=== PATIENT | male | born 1995 | race Caucasian/White ===

== ENCOUNTER 2016-09-08 22:13 | Emergency (ER) | payer BC ==
[2016-09-08 22:19] VITALS: TEMP 97.5
[2016-09-08] MEDS ORDERED: HYDROmorphONE/DILAUDID 1 MG/ML SYR ONE (22:45)
[2016-09-08] MEDS ORDERED: ONDANSETRON 4 MG/2 ML VIAL ONE (22:45)
[2016-09-08] MEDS ORDERED: KETOROLAC 15 MG/1 ML SDV IVP ONE (22:50)
[2016-09-08] MEDS ORDERED: ONDANSETRON 4 MG/2 ML VIAL IVP ONE (22:51)
[2016-09-08] MEDS ORDERED: HYDROmorphONE/DILAUDID 1 MG/ML SYR IVP ONE (22:51)
--- NOTE | 2016-09-08 22:51 | EDPHY ---
H & P Stated Complaint: LLQ/flank pain x2 days, denies N/V/D and dysuria Time Seen by Provider: 09/08/16 22:23 HPI/ROS: CHIEF COMPLAINT: left side pain HISTORY OF PRESENT ILLNESS: 21-year-old male presents to the emergency department complaining of left side pain for the past 24 hours that became worse this morning upon awakening and has worsened throughout the day. The patient reports his pain is constant, sharp. He denies nausea or vomiting, no diarrhea. He he reports having a small firm bowel movement earlier today. He denies difficulty urinating. Patient returned home from spring in [place] 2 days ago. He reports drinking the tap water. Nobody else in his group is sick. Patient denies chest pain or shortness of breath, no calf pain. Patient reports a decreased appetite for the past 36 hours. REVIEW OF SYSTEMS: A comprehensive 10 point review of systems is otherwise negative aside from elements mentioned in the history of present illness. Source: Patient Exam Limitations: No limitations - Personal History Current Tetanus/Diphtheria Vaccine: Unsure Current Tetanus Diphtheria and Acellular Pertussis (TDAP): Unsure - Medical/Surgical History Hx Asthma: No Hx Chronic Respiratory Disease: No Hx Diabetes: No Hx Cardiac Disease: No Hx Renal Disease: No Hx Cirrhosis: No Hx Alcoholism: No Hx HIV/AIDS: No Hx Splenectomy or Spleen Trauma: No Other PMH: no PMH. lumbar pain, L rotator cuff repair - Social History Smoking Status: Former smoker - Physical Exam Exam: Physical Exam Gen: Alert and Oriented, tearful, grimacing HEENT: PERRL, moist mucous membranes NECK: no meningismus CV: regular rate and regular rhythm PULM: CTAB, no wheezes ABDOMEN: soft, non tender to palpation, BS present BACK: Left CVA tenderness NEURO: Neurologically grossly intact EXTREMITIES: normal appearing SKIN: no rash or break in skin on exposed skin PSYCH: answers questions appropriately. Constitutional: Initial Vital Signs Temperature (C) 36.4 C 09/08/16 22:17 Heart Rate 98 09/08/16 22:17 Respiratory Rate 18 09/08/16 22:17 Blood Pressure 147/74 H 09/08/16 22:17 O2 Sat (%) 100 09/08/16 22:17 O2 Delivery Mode Room Air Allergies/Adverse Reactions: No Known Allergies Allergy (Unverified 04/24/15 15:35) Home Medications: Medication Instructions Recorded NK [No Known Home Meds] 09/08/16 Medical Decision Making - Diagnostics Imaging: CT abdomen pelvis without contrast- Impression: 1. Negative for nephrolithiasis or obstructive uropathy. 2. Mildly dilated small bowel loops could reflect enteritis. 3. See above report for additional findings. Results called and discussed with Mary Escobar NP on 09/08/2016 23:[address] examination is specifically designed to evaluate patients who are clinically suspected of having acute obstructive uropathy. This examination does not use radiographic contrast, and as such , provides only a limited evaluation of the abdomen, pelvis and retroperitoneum. Dictated By: Ruperto Ramírez MD ED Course/Re-evaluation: IV established, CBC and chemistry panel obtained, CT abdomen pelvis without IV contrast ordered as concern patient has a kidney stone with no history of kidney stones. Patient is aware we need a urine sample. Patient is given 1 mg of Dilaudid and 4 mg of Zofran for pain, chemistry panel shows a creatinine 1.0 so 15 mg of IV Toradol have been given. 2320-CT abdomen pelvis shows no evidence of kidney stone, there is mildly dilated small bowel loops which could reflect an enteritis. Urinalysis results are pending. 0000-patient reports his pain is much improved after the Dilaudid and Toradol. Repeat abdominal exam is normal with no peritoneal signs. Patient no longer has CVA tenderness. Differential Diagnosis: Diagnosis considered but not limited to kidney stone, muscle strain, enteritis, constipation. - Data Points Laboratory Results: Laboratory Results 09/08/16 22:45 09/08/16 09/08/16 09/08/16 23:20 22:45 22:41 WBC 9.75 10^3/uL H 10^3/uL (3.80-9.50) RBC 5.27 10^6/uL 10^6/uL (4.40-6.38) Hgb 16.1 g/dL g/dL (13.7-17.5) POC Hgb 16.3 gm/dL gm/dL (14.5-17.3) Hct 45.3 % % (40.0-51.0) POC Hct 48 % % (42.8-50.6) MCV 86.0 fL fL (81.5-99.8) MCH 30.6 pg pg (27.9-34.1) MCHC 35.5 g/dL g/dL (32.4-36.7) RDW 13.5 % % (11.5-15.2) Plt Count 202 10^3/uL 10^3/uL (150-400) MPV 10.5 fL fL (8.7-11.7) Neut % (Auto) 59.5 % % (39.3-74.2) Lymph % (Auto) 29.2 % % (15.0-45.0) [place] % (Auto) 9.0 % % (4.5-13.0) Eos % (Auto) 1.5 % % (0.6-7.6) Baso % (Auto) 0.5 % % (0.3-1.7) Nucleat RBC Rel Count 0.0 % % (0.0-0.2) Absolute Neuts (auto) 5.79 10^3/uL 10^3/uL (1.70-6.50) Absolute Lymphs (auto) 2.85 10^3/uL 10^3/uL (1.00-3.00) Absolute Monos (auto) 0.88 10^3/uL H 10^3/uL (0.30-0.80) Absolute Eos (auto) 0.15 10^3/uL 10^3/uL (0.03-0.40) Absolute Basos (auto) 0.05 10^3/uL 10^3/uL (0.02-0.10) Absolute Nucleated RBC 0.00 10^3/uL 10^3/uL (0-0.01) Immature Gran % 0.3 % % (0.0-1.1) Immature Gran # 0.03 10^3/uL 10^3/uL (0.00-0.10) POC Sodium 142 mEq/L mEq/L (134-144) POC Potassium 3.5 mEq/L mEq/L (3.3-5.0) POC Chloride 104 mEq/L mEq/L (96-108) POC BUN 16 mg/dL mg/dL (7-23) POC Creatinine 1.0 mg/dL mg/dL (0.8-1.5) POC Glucose 96 mg/dL mg/dL (70-100) Urine Color YELLOW Urine Appearance CLEAR Urine pH 6.0 (5.0-7.5) Ur Specific [place] 1.017 (1.002-1.030) Urine Protein NEGATIVE (NEGATIVE) Urine Ketones NEGATIVE (NEGATIVE) Urine Blood NEGATIVE (NEGATIVE) Urine Nitrate NEGATIVE (NEGATIVE) Urine Bilirubin NEGATIVE (NEGATIVE) Urine Urobilinogen NEGATIVE EU EU (0.2-1.0) Ur Leukocyte Esterase NEGATIVE (NEGATIVE) Ur Culture Indicated? NOT INDICATED (NI) Urine Glucose NEGATIVE (NEGATIVE) Medications Given: Discontinued Medications Hydromorphone HCl (Dilaudid) 1 mg IVP EDNOW ONE Stop: 09/08/16 22:52 Last Admin: 09/08/16 22:54 Dose: 1 mg Sodium Chloride (Ns) 1,000 mls @ 0 mls/hr IV ONCE ONE PRN Reason: Wide Open Stop: 09/08/16 22:56 Last Admin: 09/08/16 22:55 Dose: 1,000 mls Ketorolac Tromethamine (Toradol) 15 mg IVP EDNOW ONE Stop: 09/08/16 22:51 Last Admin: 09/08/16 23:07 Dose: 15 mg Ondansetron HCl (Zofran) 4 mg IVP EDNOW ONE Stop: 09/08/16 22:52 Last Admin: 09/08/16 22:54 Dose: 4 mg Point of Care Test Results: 09/08/16 22:41 POC Sodium 142 POC Potassium 3.5 POC Chloride 104 POC BUN 16 POC Creatinine 1.0 POC Glucose 96 Departure - Departure Disposition: Home, Routine, Self-Care Clinical Impression: Acute left flank pain, Enteritis Condition: Good Instructions: Flank Pain (ED), Enteritis (ED) Additional Instructions: Take 600 mg of ibuprofen every 8 hours with food, you may also take 650 mg of Tylenol every 8 hours with food, you can alternate these every 4 hours. Ice or heat to your side whichever feels better. Follow up with Nataly on Sunday for symptoms that are not improving, return to the emergency department for worsening symptoms, new symptoms or concerns. [facility] - As per Instructions
[2016-09-08] MEDS ORDERED: NS 1,000 ML IV ONE (22:55)
[2016-09-08 23:22] LABS: % IMMATURE GRANULYOCYTES 0.3 % (0.0-1.1); ABSOLUTE IMMATURE GRANULOCYTES 0.03 10^3/uL (0.00-0.10); ADD DIFF? NO; ADD MORPH? NO; ADD SCAN? NO; ATYPICAL LYMPHOCYTE FLAG 20 (0-99); FRAGMENT RBC FLAG 0 (0-99); HEMATOCRIT 45.3 % (40.0-51.0); HEMOGLOBIN 16.1 g/dL (13.7-17.5); LEFT SHIFT FLG 0 (0-99); LIPEMIA HEMOLYSIS FLAG 90 (0-99); MEAN CELL HEMOGLOBIN 30.6 pg (27.9-34.1); MEAN CELL HEMOGLOBIN CONCENTR. 35.5 g/dL (32.4-36.7); MEAN PLATELET VOLUME 10.5 fL (8.7-11.7); PLATELET CLUMPS FLAG 30 (0-99); PLATELET COUNT 202 10^3/uL (150-400); RED BLOOD CELL COUNT 5.27 10^6/uL (4.40-6.38); RED CELL DISTRIBUTION WIDTH 13.5 % (11.5-15.2)
[2016-09-09 00:08] LABS: COLOR YELLOW; LEUKOCYTE ESTERASE,URINE NEGATIVE (NEGATIVE); NITRITE,URINE NEGATIVE (NEGATIVE)
[2016-09-09 01:03] VITALS: BP 134/78; PULSE 58; RESP 16; O2SAT 95
== END 2016-09-09 00:40 | disposition home or self-care (01) ==
DX: K52.9 Noninfective gastroenteritis and colitis, unspecified (principal); Z87.891 Personal history of nicotine dependence
CPT/HCPCS: 82947-QW; 96374; J1170; J1885; J2405

== ENCOUNTER 2016-09-09 08:44 | Emergency (ER) | payer BC ==
[2016-09-09 08:48] VITALS: BP 131/83; PULSE 56; RESP 18; TEMP 98.2; O2SAT 100
[2016-09-09] MEDS ORDERED: HYDROmorphONE/DILAUDID 1 MG/ML SYR ONE (09:05)
[2016-09-09] MEDS ORDERED: KETOROLAC 15 MG/1 ML SDV ONE (09:05)
[2016-09-09] MEDS ORDERED: HYDROmorphONE/DILAUDID 1 MG/ML SYR IVP ONE (09:06)
[2016-09-09] MEDS ORDERED: KETOROLAC 15 MG/1 ML SDV IVP ONE (09:07)
--- NOTE | 2016-09-09 09:14 | EDPHY ---
H & P Time Seen by Provider: 09/09/16 08:49 HPI/ROS: This is a 21-year-old male presenting to the emergency department complaining of left flank pain. Patient seen here in the ED last night for same medical issue, left around 0045 feeling well pain was as 0/10 at that time, he states he was also able to tolerate eating soup and cup of noodles last night. Woke up this morning at 7 o'clock with a 8/10 left flank pain similar to last night no changes in pain, no nausea vomiting or diarrhea. Patient was able to take 400 mg of ibuprofen but no resolve. Patient did report that he was in [place] returned home on 09/06. Reviewed CT of abdomen from last night diagnosis with enteritis, was sent home with instructions to take ibuprofen and Tylenol for any pain. Patient denies any new symptoms. REVIEW OF SYSTEMS: Constitutional: No fever or chills, tearful ENT: No sore throat Respiratory: No cough Cardiac: No chest pain Gastrointestinal: positive left flank pain radiating to left side No diarrhea/ nausea/vomiting Skin: No rash Neurological: No headache or dizziness Smoking Status: Former smoker Physical Exam: CONSTITUTIONAL: patient appeared well nourished, non-ill appearing and normally developed. No acute distress. Vital signs as documented. HEENT: NCAT NECK: Supple, FROM without pain RESP: Non-labored resp effort, airway patent, CTAB CARDIAC: RRR w/o murmur, malika. Normal S1/S2 GI: Abd soft NTTP. Left lateral side TTP no mass NEURO: AAOx3 EXTREMITIES: FROM without pain or difficulty SKIN: warm and dry, no rash or lesions PSYCH: Normal affect, calm, no distress Constitutional: Initial Vital Signs Temperature (C) 36.8 C 09/09/16 08:44 Heart Rate 56 L 09/09/16 08:44 Respiratory Rate 18 09/09/16 08:44 Blood Pressure 131/83 H 09/09/16 08:44 O2 Sat (%) 100 09/09/16 08:44 O2 Delivery Mode Room Air Allergies/Adverse Reactions: No Known Allergies Allergy (Verified 09/09/16 08:44) Home Medications: Medication Instructions Recorded oxyCODONE HCL/ACETAMINOPHEN 1 each PO Q6HRS #10 tablet 09/09/16 [Percocet 5-325 mg Tablet] Medical Decision Making ED Course/Re-evaluation: Discussed plan of care: Labs and CT scan reviewed from visit on 09/07/2016. The IV, Dilaudid 1 mg and Toradol 15 mg both given IV. 1015: On re-evaluation for pain control, patient states comfortable at this time 0/10 pain, no nausea or vomiting or diarrhea 1030: Discharge home---> stable, discussed discharge instructions with the patient Differential Diagnosis: Differential diagnosis considered but not limited to appendicitis, gastroenteritis and small-bowel obstruction - Data Points Medications Given: Discontinued Medications Hydromorphone HCl (Dilaudid) 1 mg IVP EDNOW ONE Stop: 09/09/16 09:07 Last Admin: 09/09/16 09:16 Dose: 1 mg Ketorolac Tromethamine (Toradol) 15 mg IVP EDNOW ONE Stop: 09/09/16 09:08 Last Admin: 09/09/16 09:17 Dose: 15 mg Departure - Departure Disposition: Home, Routine, Self-Care Clinical Impression: Enteritis, Flank pain Condition: Good Instructions: Enteritis (ED) Additional Instructions: 1. [place] diet for the next 24 hours such as: clear fluids, bananas, toast 2. Increase fluid intake 3. Dont take Ibuprofen since this irritated stomach this morning worsening pain 4. If any symptoms worsen such as: diarrhea, unable to tolerate PO intake, severe pain unresolved with pain medication. Return to the ER Referrals: NONE *PRIMARY CARE P,. [Primary Care Provider] - As per Instructions [facility],. [Clinic] - As per Instructions [facility],. [Clinic] - As per Instructions Prescriptions: oxyCODONE HCL/ACETAMINOPHEN [Percocet 5-325 mg Tablet] 1 each PO Q6HRS #10 tablet
== END 2016-09-09 10:54 | disposition home or self-care (01) ==
DX: K52.9 Noninfective gastroenteritis and colitis, unspecified (principal); Z87.891 Personal history of nicotine dependence
CPT/HCPCS: 96374; J1170; J1885

== ENCOUNTER 2017-04-15 13:22 | Inpatient (IN) | payer BC ==
[2017-04-15] MEDS ORDERED: HYDROmorphONE/DILAUDID 1 MG/ML INJ IVP ONE ×2 (13:46→15:55)
[2017-04-15] MEDS ORDERED: NS 1,000 ML IV ONE ×2 (13:46→15:55)
--- NOTE | 2017-04-15 13:56 | EDPHY ---
H & P Stated Complaint: worse carlson of his life/started after snowboarding/unknown head inj/no helmet - Personal History Current Tetanus/Diphtheria Vaccine: Yes - Medical/Surgical History Hx Asthma: No Hx Chronic Respiratory Disease: No Hx Diabetes: No Hx Cardiac Disease: No Hx Renal Disease: No Hx Cirrhosis: No Hx Alcoholism: No Hx HIV/AIDS: No Hx Splenectomy or Spleen Trauma: No Other PMH: no PMH. lumbar pain, L rotator cuff repair - Social History Smoking Status: Former smoker <Ruperto Doshi - Last Filed: 04/15/17 17:49> <SamyConchis Casanova - Last Filed: 04/15/17 22:24> Time Seen by Provider: 04/15/17 13:39 HPI/ROS: Chief complaint: Headache History of present illness: This is a 22-year-old male who presents to the emergency department for evaluation of a headache. He reports he has had a headache for the last 3-4 days. He describes severe pain starting in the occipital region radiating around the top of the head. He has had associated photo and phonophobia with it. He does not have a history of headaches, this is very atypical for him. It is the worst headache of his life. He has tried hfhy-mol-jtyliai medications including ibuprofen with minimal relief. He does state the day symptoms began he was snowboarding although he does not remember a specific traumatic event that could have started the headache. However, he did take multiple falls during the day. He denies other associated signs or symptoms including no fevers, no cold symptoms, no neck pain or back pain, no paresthesias, no weakness or paralysis, no bowel or bladder dysfunction. Review of systems: A 10 point review of systems was obtained and other than described above was negative (Ruperto Doshi) - Physical Exam Exam: General Appearance: Alert, no distress. Eyes: Pupils equal and round no pallor or injection. ENT, Mouth: Mucous membranes moist. Respiratory: There are no retractions, lungs are clear to auscultation. Cardiovascular: Regular rate and rhythm. Gastrointestinal: Abdomen is soft and non tender, no masses, bowel sounds normal. Neurological: Alert and oriented x4. Cranial nerves 2-12 grossly intact. Strength and sensation intact and symmetrical. Ambulating without difficulty. Skin: Warm and dry, no rashes. Musculoskeletal: Neck is supple non tender. Extremities are symmetrical, full range of motion. Psychiatric: Patient is oriented X 3, there is no agitation. (Ruperto Doshi) Constitutional: Initial Vital Signs Temperature (C) 36.7 C 04/15/17 13:31 Heart Rate 65 04/15/17 13:31 Respiratory Rate 20 04/15/17 13:31 Blood Pressure 144/80 H 04/15/17 13:31 O2 Sat (%) 100 04/15/17 13:31 O2 Delivery Mode Room Air Allergies/Adverse Reactions: No Known Allergies Allergy (Verified 04/15/17 13:30) Home Medications: Medication Instructions Recorded NK [No Known Home Meds] 04/15/17 Medical Decision Making - Diagnostics Imaging: Discussed imaging studies w/ calliope player Radiologist <Ruperto Doshi - Last Filed: 04/15/17 17:49> Consult/Admit Bed Type: Dr Bianchi, med surg <Conchis Pablo - Last Filed: 04/15/17 22:24> - Diagnostics Imaging Results: Imaging Impressions Head CT 04/15/17 13:46 Impression: 1. No acute intracranial findings. 2. Left maxillary sinus disease as above. Findings discussed with CARL Lima 04/15/2017 at 15:08. Procedures: Procedure: Lumbar puncture. Indication: headache I was asked by NITHYA Lima to perform a lumbar puncture. After verbal informed consent from patient explaining the risks including infection, bleeding , and neurologic damage, a lumbar puncture was performed after the patient was prepped and draped in the usual fashion. The back was anesthetized with 1% lidocaine. A 22gauge needle was used. Approximately 4 cc of clear fluid was obtained. Opening pressure was not obtained. During the procedure there were no complications. After the LP was finished, he developed a severe headache. The procedure was performed by myself, Dr. Pablo. (Conchis Pablo) ED Course/Re-evaluation: evaluated and participated in the management of the patient. I also evaluated the patient independently. My co-signature indicates that I have reviewed this chart and I agree with the findings and plan of care as documented. My personal H&P findings include: 22-year-old male presents with a history of a headache which started 3 days ago. By my history he did have cold symptoms with slight runny nose and cough earlier in the week which had resolved by , 4 days ago. Patient reports going snow boarding on either or Sunday. The next day he developed a headache described as starting at the back of his head, over the occipital area and extending up and over the top of the head. He does have some discomfort in his neck. He reports the headache is much worse when he stands up or walks around. No nausea or vomiting. No fever. Also worse when moving his neck from side to side. On physical exam this is a pleasant, alert, well-appearing individual. Neck is supple. No meningismus appreciated although headache worsens with extension of the back. Lungs are clear to auscultation. Heart is regular rate and rhythm. Abdomen is soft nontender. Motor strength 5 over5 throughout. I discussed the importance of further evaluation of the patient's significant headache. Patient consented to a lumbar puncture. Please see the procedure note. Fluid obtain was clear and was easily obtained on the 1st pass. 1810: CSF results: G stain negative, WBCs 790 in tube 4 with no red cells. Predominance of lymphocytes. Protein is 104. 2 g of Rocephin ordered. 1811: Reassessed patient and discussed laboratory results. Patient denies any travel. He is originally from [place] but has been in the [facility] since January. His travel to and from [place] on several occasions but no other travel history. He does not recall any recent mosquito bites. No history of Lyme disease. Girlfriend does have herpes simplex cold sores. 1824: Consulted with BRYCE Mcdowell, about the patients symptoms and laboratory results. She believes the patient most likely has a viral meningitis. She recommends adding enteroviral and West Nile viral to his CSF. She agrees to follow this patient during his admission. 1828: Consulted with hospitalist service, Dr. Bianchi accepts admission of this patient. Critical care time spent by me, Dr. Pablo exclusively with this patient was 35 minutes, exclusive of PA time and exclusive of procedures. The organ system at risk was neurologic and I performed a lumbar puncture, consulted with Infectious Disease, gave IV antibiotics, to prevent worsening of the patients condition. Critical care time included obtaining history, performing a physical exam, bedside monitoring of interventions, collecting and interpreting tests and discussion with consultants but not including time spent performing procedures. (Conchis Pablo) Differential Diagnosis: Included but not limited to chronic daily headache, tension headache, cluster headache, migraine headache, intracranial bleed including spontaneous subarachnoid hemorrhage, unlikely intracranial tumor or meningitis (Ruperto Doshi) - Data Points Laboratory Results: Laboratory Results 04/15/17 14:00 04/15/17 14:00 04/15/17 04/15/17 04/15/17 16:15 16:15 16:15 WBC RBC Hgb Hct MCV MCH MCHC RDW Plt Count MPV Neut % (Auto) Lymph % (Auto) [place] % (Auto) Eos % (Auto) Baso % (Auto) Nucleat RBC Rel Count Absolute Neuts (auto) Absolute Lymphs (auto) Absolute Monos (auto) Absolute Eos (auto) Absolute Basos (auto) Absolute Nucleated RBC Immature Gran % Immature Gran # Sodium Potassium Chloride Carbon Dioxide Anion Gap BUN Creatinine Estimated GFR Glucose Calcium Fl Pathologist Review Pending CSF Tube Number 4 1 CSF Appearance SL. HAZY H SL. HAZY H (CLEAR) (CLEAR) CSF Color COLORLESS COLORLESS (COLORLESS) (COLORLESS) CSF Supernatant Not Reported COLORLESS (COLORLESS) CSF WBC 790 /mm3 H /mm3 436 /mm3 H /mm3 (0-5) (0-5) CSF RBC 0 /mm3 /mm3 7 /mm3 H /mm3 (0-0) (0-0) CSF Neutrophils % 5 % % 7 % H % (0-6) (0-6) CSF Lymphocytes % 73 % % 74 % % (0-100) (0-100) CSF Monos/Macrophage % 22 % % 19 % % (0-45) (0-45) CSF Glucose 51 mg/dL mg/dL (50-75) CSF Total Protein 104 mg/dL H mg/dL (12-60) CSF West Nile IgG Ab Pending CSF West Nile IgM Ab Pending CSF West Nile Interp Pending Enterovirus Source Pending Enterovirus RNA (PCR) Pending 04/15/17 04/15/17 14:00 14:00 WBC 8.31 10^3/uL 10^3/uL (3.80-9.50) RBC 4.90 10^6/uL 10^6/uL (4.40-6.38) Hgb 14.5 g/dL g/dL (13.7-17.5) Hct 42.2 % % (40.0-51.0) MCV 86.1 fL fL (81.5-99.8) MCH 29.6 pg pg (27.9-34.1) MCHC 34.4 g/dL g/dL (32.4-36.7) RDW 13.0 % % (11.5-15.2) Plt Count 183 10^3/uL 10^3/uL (150-400) MPV 10.0 fL fL (8.7-11.7) Neut % (Auto) 63.7 % % (39.3-74.2) Lymph % (Auto) 23.8 % % (15.0-45.0) [place] % (Auto) 11.7 % % (4.5-13.0) Eos % (Auto) 0.2 % L % (0.6-7.6) Baso % (Auto) 0.2 % L % (0.3-1.7) Nucleat RBC Rel Count 0.0 % % (0.0-0.2) Absolute Neuts (auto) 5.29 10^3/uL 10^3/uL (1.70-6.50) Absolute Lymphs (auto) 1.98 10^3/uL 10^3/uL (1.00-3.00) Absolute Monos (auto) 0.97 10^3/uL H 10^3/uL (0.30-0.80) Absolute Eos (auto) 0.02 10^3/uL L 10^3/uL (0.03-0.40) Absolute Basos (auto) 0.02 10^3/uL 10^3/uL (0.02-0.10) Absolute Nucleated RBC 0.00 10^3/uL 10^3/uL (0-0.01) Immature Gran % 0.4 % % (0.0-1.1) Immature Gran # 0.03 10^3/uL 10^3/uL (0.00-0.10) Sodium 144 mEq/L mEq/L (134-144) Potassium 3.5 mEq/L mEq/L (3.5-5.2) Chloride 104 mEq/L mEq/L (97-110) Carbon Dioxide 26 mEq/l mEq/l (22-31) Anion Gap 14 mEq/L mEq/L (8-16) BUN 6 mg/dL L mg/dL (7-23) Creatinine 0.9 mg/dL mg/dL (0.7-1.3) Estimated GFR > 60 Glucose 66 mg/dL L mg/dL (70-100) Calcium 8.8 mg/dL mg/dL (8.5-10.4) Fl Pathologist Review CSF Tube Number CSF Appearance CSF Color CSF Supernatant CSF WBC CSF RBC CSF Neutrophils % CSF Lymphocytes % CSF Monos/Macrophage % CSF Glucose CSF Total Protein CSF West Nile IgG Ab CSF West Nile IgM Ab CSF West Nile Interp Enterovirus Source Enterovirus RNA (PCR) Microbiology Results: MICROBIOLOGY 04/15/17 16:15 Cerebral Spinal Fluid Gram Stain - Final Medications Given: Oxycodone/Acetaminophen (Percocet 5/325) 1 - 2 tab PO Q4HRS PRN PRN Reason: Pain, Severe Able to Take PO Stop: 04/25/17 18:30 Last Admin: 04/15/17 20:26 Dose: 2 tab Discontinued Medications Hydromorphone HCl (Dilaudid) 0.5 mg IVP EDNOW ONE Stop: 04/15/17 13:47 Last Admin: 04/15/17 14:19 Dose: 0.5 mg Hydromorphone HCl (Dilaudid) 1 mg IVP EDNOW ONE Stop: 04/15/17 15:56 Last Admin: 04/15/17 16:08 Dose: 1 mg Sodium Chloride (Ns) 1,000 mls @ 0 mls/hr IV EDNOW ONE; Wide Open PRN Reason: Protocol Stop: 04/15/17 13:47 Last Admin: 04/15/17 14:17 Dose: 1,000 mls Sodium Chloride (Ns) 1,000 mls @ 0 mls/hr IV ONCE ONE; Wide Open PRN Reason: Protocol Stop: 04/15/17 15:56 Last Admin: 04/15/17 16:07 Dose: 1,000 mls Ceftriaxone Sodium 2 gm/ (Dextrose) 50 mls @ 100 mls/hr IV EDNOW ONE PRN Reason: Protocol Stop: 04/15/17 18:38 Last Admin: 04/15/17 19:26 Dose: 50 mls Ketorolac Tromethamine (Toradol) 15 mg IVP Q6HRS [facility] Stop: 04/20/17 18:34 Last Admin: 04/15/17 19:09 Dose: 15 mg Ketorolac Tromethamine (Toradol) 15 mg IVP ONCE ONE Stop: 04/15/17 21:10 Last Admin: 04/15/17 21:56 Dose: 15 mg Departure <Ruperto Doshi - Last Filed: 04/15/17 17:49> <Conchis Pablo - Last Filed: 04/15/17 22:24> - Departure Disposition: [facility] Acute Clinical Impression: Meningitis Headache Qualifiers: Headache type: other headache syndrome Qualified Code(s): G44.89 - Other headache syndrome Condition: Serious Report Scribed for: Conchis Pablo Report Scribed by: Naty Rodriguez Date of Report: 04/15/17 Time of Report: 16:11 <Conchis Pablo - Last Filed: 04/15/17 22:24>
[2017-04-15] MEDS ORDERED: HYDROmorphONE/DILAUDID 1 MG/ML INJ ONE (14:08)
[2017-04-15 14:09] LABS: PLATELET COUNT 183 10^3/uL (150-400)
[2017-04-15] MEDS ORDERED: cefTRIAXone 2 GM in D5W 50 ML IV ONE (18:09)
[2017-04-15] MEDS ORDERED: ACETAMINOPHEN 325 MG TAB PO PRN (18:31)
[2017-04-15] MEDS ORDERED: ONDANSETRON DISINTEGRATING 4 MG TAB PO PRN (18:31)
[2017-04-15] MEDS ORDERED: ONDANSETRON 4 MG/2 ML VIAL IVP PRN (18:31)
[2017-04-15] MEDS ORDERED: KETOROLAC 15 MG/1 ML SDV IVP SCH (18:35)
[2017-04-15] MEDS: OXYCODONE/APAP 5/325 TAB PO PRN (20:26)
[2017-04-15] MEDS ORDERED: KETOROLAC 15 MG/1 ML SDV IVP ONE (21:09)
[2017-04-15] MEDS ORDERED: HYDROmorphone HCL/NS/PF 0.4 MG/2 ML SYR IVP PRN (21:10)
[2017-04-15] MEDS ORDERED: ZOLPIDEM TARTRATE 5 MG TAB PO PRN (21:11)
--- NOTE | 2017-04-15 22:12 | GHP ---
[f rep st] HISTORY AND PHYSICAL DATE OF ADMISSION: 04/15/2017 CHIEF COMPLAINT: Headache. 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 The patient described on Sunday mohinder ding his presentation that he went to classes normally, but noticed a small, lingering headache. Cam e home, studied a bit, laid down, tried to rest. Over the course of the next 48 hours, he had progre ssive symptoms of headache with associated sensitivity to light. Stiffness in his neck that ultimate ly led to him staying home from classes, turning off Light's criteria, and simply trying to rest, bec ause he had increasing headache even with simple light exposure and activity. The patient ultimately woke early this morning and decided to present to the emergency department because the headache was so nonresponsive to antiinflammatories or anything he was doing at home and he sought care. The esme ent denied any associated nausea or vomiting. He had some associated anorexia secondary to the pain. He describes a slight runny nose, but no sore throat, cough, fevers, chills, or rashes. The patien t has no known sick contacts recently. Denies any travel outside of the state over the recent [place]. Denies any change in his bowel habits, diarrhea, constipation, hematochezia, dysuria, hemat uria. The patient typically does not get headaches and describes this headache as extending from the base of his neck all the way up across his head to his forehead. PAST MEDICAL HISTORY: None. SOCIAL HISTORY: He is a [employer] student. Drinks occasional alcohol. Does not smoke tobacco. Does not u se illicit drugs regularly. He says he had a single experimental use of cocaine 1 week ago. Had hea dache after that and has not used again and plans not to ever again. FAMILY HISTORY: Negative for any neurologic diseases. There is a history of colon cancer. REVIEW OF SYSTEMS: A 10-point review of systems was negative with the exception of that reported in the HPI. PHYSICAL EXAMINATION: VITAL SIGNS: Blood pressure 119/69, heart rate 76, respiratory rate 18, satur ating 98% on room air, temperature 37.1. GENERAL: This is am uncomfortable appearing, healthy young male, lying flat in bed with the lights off in his room. HEENT: Notable for moist mucous membranes . Eye exam is negative for any icterus. Oropharynx is clear. No exudates are notable. NECK: No ly mphadenopathy is noted. CARDIAC: The patient is regular rate and rhythm. PULMONARY: He is clear t o auscultation bilaterally. GASTROINTESTINAL: Positive bowel sounds. Abdomen is soft and nontender to palpation. MUSCULOSKELETAL: Negative for any lower extremity edema. SKIN: Negative for any ra shes. NEUROLOGIC: Pupils are equal, round, reactive to light. He is sensitive to light with provok ed headache. Brudzinski sign is positive. Strength is 5/5 bilaterally in the upper and lower extrem ities. Sensation is intact throughout. PSYCHIATRIC: He is pleasant and cooperative on interview an d examination. DATA: White count is 8.3, hematocrit 42.2, platelets of 183. Sodium 144, creatinine 0.9, glucose is 66. CSF shows 790 white blood cells, lymphocyte-predominant. Total protein is 104. Glucose is nor mal at 51. Noncontrast CT of the head, which I personally reviewed and interpreted, shows no acute intracranial findings. ASSESSMENT AND PLAN: This is a 22-year-old male presenting with headache. 1. Acute meningitis. Appears aseptic on cerebrospinal fluid analysis. However, the white blood jenelle l count is quite elevated. No organisms were seen on Gram stain. The patient is receiving empiric c eftriaxone 2 g q.12 hours until our cerebrospinal fluid cultures are negative x24 hours. We reviewed the case with Infectious Disease and have sent serologies for West Nile, as well as enterovirus. Ce rebrospinal fluid is sent for culture as well. The patient has had some symptomatic response to [place] dol. Will increase his dose to 30 mg IV q.8 and continue p.r.n. pain medications as needed. 2. Prophylaxis: Patient can ambulate. 3. Diet, as he can tolerate. 4. Disposition. I am expecting greater than 2 midnights, as the patient is presenting with meningit is that will require additional diagnostics. The patient is currently requiring IV pain medications for control. I have discussed the case with the emergency room provider. The patient will be triaged to the Medic al-Surgical floor under contact isolation for meningitis. /[id number]/MODL
[2017-04-16] MEDS: KETOROLAC 30 MG/1 ML SDV IVP SCH ×4 (03:42→22:20)
[2017-04-16 05:21] LABS: PLATELET COUNT 163 10^3/uL (150-400)
[2017-04-16] MEDS ORDERED: cefTRIAXone 2 GM in D5W 50 ML IV SCH (07:00)
--- NOTE | 2017-04-16 07:45 | PDMN ---
Medical Necessity Medical necessity: Patient meets INPT critieria per physician note and [facility] M- 221 Meningitis, Suspected or Viral (likely aseptic acute meningitis: hx of 72 hr severe, progressive [place], w/photosensitivity and neck stiffness; CSF shows 790 WBC's, total protein 104; anticipated LOS > 24 hours for treatment acute meningitis, including scheduled IV Toradol, empiric IV ceftriaxone until CSF cultures neg x 24 hrs.)
--- NOTE | 2017-04-16 07:45 | PDMN ---
Medical Necessity Medical necessity: Patient meets INPT critieria per physician note and [facility] M- 221 Meningitis, Suspected or Viral (likely aseptic acute meningitis: hx of 72 hr severe, progressive [place], w/photosensitivity and neck stiffness; CSF shows 790 WBC's, total protein 104; anticipated LOS > 24 hours for treatment acute meningitis, including scheduled IV Toradol, empiric IV ceftriaxone until CSF cultures neg x 24 hrs.)
--- NOTE | 2017-04-16 07:45 | PDMN ---
Medical Necessity Medical necessity: Patient meets INPT critieria per physician note and [facility]- [facility] Meningitis, Suspected or Viral (likely aseptic acute meningitis: hx of 72 hr severe, progressive [place], w/photosensitivity and neck stiffness; CSF shows 790 WBC's, total protein 104; anticipated LOS > 24 hours for treatment acute meningitis, including scheduled IV Toradol, empiric IV ceftriaxone until CSF cultures neg x 24 hrs.)
--- NOTE | 2017-04-16 11:44 | GCON ---
[f rep st] CONSULTATION DATE OF CONSULTATION: 04/16/2017 REFERRING PHYSICIAN: Madhuri Bianchi MD REASON FOR CONSULTATION: Meningitis. 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 Patient describes developing a headache on Sunday af ter he had been snowboarding. He did have a headache earlier in the week, although this was self-starr ited. He did not have any significant head injury that he recalls when snowboarding. That afternoon , he took a nap, then awoke, and tried to study for his exams, but his headache got progressively mor e severe. Over the next 48 hours, he had progressive headache with associated photophobia. He did n ot have any associated fever, chills but describes having mild night sweats. The patient did take ib uprofen for his headache, but this did not provide any relief in symptoms. He had mild associated na usea without vomiting or diarrhea. His oral intake was slightly decreased. He denies any sore throa t or significant rhinorrhea. No other respiratory symptoms present. He has not noted any skin rash. Current symptoms are atypical for patient who does not normally suffer from headaches. No recent t ravel history. No unusual animal exposures such as rabbits, squirrels, hamsters, or gerbils. Rick townsend underwent lumbar puncture in the emergency department, which showed 436 white blood cells in tube 1 and 790 white blood cells in tube 4; differential showed 73% lymphocytes and 22% monocytes with gluc ose 51 and protein 104. Gram stain of the CSF specimen is negative with cultures currently pending. Patient's peripheral blood smear also revealed 2+ atypical lymphocytes. Patient has been started em pirically on ceftriaxone and placed on droplet precautions. No prior history of similar symptoms. P atient does not note any mosquito exposure. Given the above findings, I am now asked to assist in hi s ongoing management. PAST MEDICAL HISTORY: Unremarkable. PAST SURGICAL HISTORY: Shoulder surgery for torn rotator cuff. MEDICATIONS: Prior to admission: As needed ibuprofen. ALLERGIES: No known drug allergies. SOCIAL HISTORY: Patient does not smoke. He drinks alcohol socially. He smokes marijuana. No other drug use. He is in a monogamous heterosexual relationship. FAMILY HISTORY: Colon cancer. REVIEW OF SYSTEMS: Outside that noted in the HPI, the remainder of 10 system review is unremarkable. PHYSICAL EXAMINATION: VITAL SIGNS: Temperature 36.6, heart rate 53, respiratory rate 12, blood pres sure 103/63, oxygen saturation 95% on room air. GENERAL: Patient is well-nourished, well-developed in no acute distress. He appears nontoxic. HEENT: There is no scleral icterus, conjunctival inject ion, or conjunctival petechiae. Oropharynx is clear without lesions. Dentition is in good repair. Mucous membranes are moist. There is no nasal discharge. There is no tenderness over the frontal, m axillary, or mastoid area. NECK: Supple without lymphadenopathy or thyromegaly. CHEST: Clear to a uscultation bilaterally without adventitious sounds. The respiratory effort is normal. CARDIOVASCUL AR: Regular rhythm with bradycardia present. No murmurs, gallops, or rubs. ABDOMEN: Soft, nontend er, nondistended. There is no palpable organomegaly. Bowel sounds are present. MUSCULOSKELETAL: T here is no cyanosis, clubbing, or edema. SKIN: No rashes present. No stigmata of endocarditis. Sk in is warm and dry to touch. NEUROLOGIC: Patient is alert and interacts appropriately with the exam iner. Cranial nerves 2-12 are grossly intact. Sensation is grossly intact. Muscle tone and bulk ar e normal. Pupils are equal, round, and reactive to light. LYMPHATICS: No cervical, supraclavicular , or epitrochlear nodes palpable. LABORATORY DATA: White blood cell count 5.3, hematocrit 39.9, platelets 163, neutrophils 38%, lympho cytes 51%, 2+ atypical lymphocytes present. Serum creatinine is 0.9. CSF as outlined in the HPI. C SF for enterovirus by PCR and West Nile virus antibodies are pending. CSF Gram stain shows no organi sms with culture pending. Blood cultures x2 sets are pending. 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 IMPRESSION: Meningitis: Clinical presentation, CSF findings, and presence of atypical lymphocytes o n peripheral blood smear are all compatible with viral etiology. Enterovirus is most likely based on season and several roommates with upper respiratory illness. West Nile virus also of consideration although suspect less likely given lack of mosquito exposure and decreased local mosquito activity. Jeanna-Bhatt virus also a consideration as mono can be associated with aseptic meningitis and would a lso be associated with atypical lymphocytosis. Clinical and laboratory findings are not suggestive o f bacterial etiology. RECOMMENDATIONS: 1. Discontinue ceftriaxone. 2. Follow up CSF enterovirus and West Nile virus antibodies as well as CSF cultures as available. 3. Check EBV antibody profile. 4. Continue supportive care with pain control and IV fluid. Patient can be discharged when he feels like he is functional independently. 5. Discontinue droplet precautions. Thank you for this consultation. We will continue to follow the patient with you. /[id number]/MODL
--- NOTE | 2017-04-16 11:46 | HOSPPROG ---
Hospitalist Progress Note Assessment/Plan: Aseptic meningitis - CSF fluid c/w aseptic picture. Was on IV ceftriaxone empirically, but can dc per ID notes. -follow Cx data -west nile and enterovirus serologies pending -case reviewed with ID, d/c ceftriaxone -home when feeling better, possibly tomorrow Full code Dispo - cont inpt Subjective: Pt doing okay, c/o headache. Back and neck hurt more after stretching. No fevers. He is frustrated with being ill. Objective: Vital Signs Temp Pulse Resp BP Pulse Ox 36.6 C 47 L 14 121/80 H 98 04/16/17 11:20 04/16/17 11:20 04/16/17 11:20 04/16/17 11:20 04/16/17 11:20 Laboratory Results 04/16/17 04:44 04/16/17 04:44 04/15/17 04/16/17 04/17/17 05:59 05:59 05:59 Intake Total 2350 1000 Balance 2350 1000 - Physical Exam Constitutional: no apparent distress Eyes: PERRL Ears, Nose, Mouth, Throat: moist mucous membranes Cardiovascular: regular rate and rhythym Respiratory: no respiratory distress Gastrointestinal: normoactive bowel sounds, soft, non-tender abdomen Skin: warm Musculoskeletal: full muscle strength Neurologic: AAOx3 Psychiatric: interacting appropriately ICD10 Worksheet Patient Problems: Problems Problem Status Onset Headache Acute Meningitis Acute
[2017-04-16] MEDS: OXYCODONE/APAP 5/325 TAB PO PRN (12:10)
--- NOTE | 2017-04-16 17:03 | ASMTCMCOM ---
CM Note CM Note Notes: Pt in for headache meningitis, no longer on IV ceftriaxone. Anticipate pt will d/c when medically stable. No therapies ordered. Likely d/c tomorrow. CM available for changes/needs. Date Signed: 04/16/2017 05:03 PM Electronically Signed By:KRISTOPHER Ramires
[2017-04-17] MEDS: KETOROLAC 30 MG/1 ML SDV IVP SCH ×2 (03:43→10:05)
--- NOTE | 2017-04-17 08:53 | GDS ---
[f rep st] DISCHARGE SUMMARY DISCHARGE DIAGNOSIS: Aseptic meningitis. CONSULTANTS: Dr. Loc Ramírez, Infectious Disease. HISTORY OF PRESENT ILLNESS: For history of details, please see the history and physical dated Novem2016. 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 He had sick contacts with several college friends. Workup in the Emergency Department was consistent with aseptic meningitis. He was admitted to the hospital for further manag ement. HOSPITAL COURSE: The patient was admitted to Medical Surgical Unit. He underwent lumbar puncture, a nd his cerebrospinal fluid analysis was consistent with an aseptic meningitis. He has no organisms o n his Gram stain. His culture remains negative after 24 hours. In addition, he has negative blood c ultures. He was initially treated with ceftriaxone. This was discontinued after infectious disease consult the day after admission. The patient feels better this morning. He is ready for discharge. DISPOSITION: The patient is discharged home in stable condition. FOLLOWUP: The patient is follow up with primary care physician at [facility]. DISCHARGE MEDICATIONS: There are no new medications on discharge. /[id number]/MODL
[2017-04-17 08:59] VITALS: BP 115/65; PULSE 47; RESP 18; TEMP 98.2; O2SAT 100
--- NOTE | 2017-04-18 11:57 | ASDISCHSUM ---
Discharge Information Plan Status:Home with No Needs Medically Cleared to Leave: Discharge Date:04/17/2017 11:05 AM CM D/C Disposition: ADT D/C Disposition:Home, Routine, Self-Care Projected Discharge Date:04/17/2017 11:05 AM Transportation at D/C: Discharge Delay Reason: Follow-Up Date:04/17/2017 11:05 AM Discharge Slot: Final Diagnosis: Placement Information Patient Contact Information Contact Name:SASHA Relationship:Father Address:[address] City:[place] Alternate Phone: [facility]/Zip Code:[place] [address] Email: Financial Information Financial Class:HMO and PPO Plans Primary Plan Desc: OUT OF STATE PPO Primary Plan Number:[id number] Secondary Plan Desc: Secondary Plan Number: Assessment Information [facility] CM Progress Note CM Note CM Note Notes: Pt in for headache meningitis, no longer on IV ceftriaxone. Anticipate pt will d/c when medically stable. No therapies ordered. Likely d/c tomorrow. CM available for changes/needs. Date Signed: 04/16/2017 05:03 PM Electronically Signed By:KRISTOPHER Ramires Intervention Information Intervention Type:*Incorrect Registration Date of Service:04/15/2017 08:04 AM Patient Type:Inpatient Staff Member:JUAN DANIEL Oswald Susan Hours: Discipline: Severity: Comment:
--- NOTE | 2017-04-18 11:57 | ASDISCHSUM ---
Discharge Information Plan Status:Home with No Needs Medically Cleared to Leave: Discharge Date:04/17/2017 11:05 AM CM D/C Disposition: ADT D/C Disposition:Home, Routine, Self-Care Projected Discharge Date:04/17/2017 11:05 AM Transportation at D/C: Discharge Delay Reason: Follow-Up Date:04/17/2017 11:05 AM Discharge Slot: Final Diagnosis: Placement Information Patient Contact Information Contact Name:SASHA Relationship:Father Address:[address] City:[place] Alternate Phone: [facility]/Zip Code:[place] [address] Email: Financial Information Financial Class:HMO and PPO Plans Primary Plan Desc: OUT OF STATE PPO Primary Plan Number:[id number] Secondary Plan Desc: Secondary Plan Number: Assessment Information [facility] CM Progress Note CM Note CM Note Notes: Pt in for headache meningitis, no longer on IV ceftriaxone. Anticipate pt will d/c when medically stable. No therapies ordered. Likely d/c tomorrow. CM available for changes/needs. Date Signed: 04/16/2017 05:03 PM Electronically Signed By:KRISTOPHER Ramires Intervention Information Intervention Type:*Incorrect Registration Date of Service:04/15/2017 08:04 AM Patient Type:Inpatient Staff Member:JUAN DANIEL Oswald Susan Hours: Discipline: Severity: Comment:
--- NOTE | 2017-04-18 11:57 | ASDISCHSUM ---
Discharge Information Plan Status:Home with No Needs Medically Cleared to Leave: Discharge Date:04/17/2017 11:05 AM CM D/C Disposition: ADT D/C Disposition:Home, Routine, Self-Care Projected Discharge Date:04/17/2017 11:05 AM Transportation at D/C: Discharge Delay Reason: Follow-Up Date:04/17/2017 11:05 AM Discharge Slot: Final Diagnosis: Placement Information Patient Contact Information Contact Name:SASHA Relationship:Father Address:[address] City:[place] Alternate Phone: [facility]/Zip Code:[place] [address] Email: Financial Information Financial Class:HMO and PPO Plans Primary Plan Desc: OUT OF STATE PPO Primary Plan Number:[id number] Secondary Plan Desc: Secondary Plan Number: Assessment Information [facility] CM Progress Note CM Note CM Note Notes: Pt in for headache meningitis, no longer on IV ceftriaxone. Anticipate pt will d/c when medically stable. No therapies ordered. Likely d/c tomorrow. CM available for changes/needs. Date Signed: 04/16/2017 05:03 PM Electronically Signed By:KRISTOPHER Ramires Intervention Information Intervention Type:*Incorrect Registration Date of Service:04/15/2017 08:04 AM Patient Type:Inpatient Staff Member:JUAN DANIEL Oswald Susan Hours: Discipline: Severity: Comment:
== END 2017-04-17 11:05 | disposition home or self-care (01) | DRG 99 ==
LOC: OBSVTOIN 18:34 → F3N 20:12 → F1N 04-16 19:51
PROVIDERS: ADMIT Hospitalist; ATTEND Hospitalist
PROC: 009U3ZX Drainage of Spinal Canal, Percutaneous Approach, Diagnostic (ICD-10-PCS; principal; 2017-04-15)
DX: G03.0 Nonpyogenic meningitis (principal)
CPT/HCPCS: 86664-90; 86665-90; 87798-90; 96374; J0696; J1170; J1885

== ENCOUNTER 2017-04-20 13:09 | Observation (INO) | payer BC ==
--- NOTE | 2017-04-20 13:47 | EDPHY ---
H & P Stated Complaint: D/C'd 2 days w/viral meningitis;h/a since d/c;+n/v; hyperventilating Time Seen by Provider: 04/20/17 13:31 HPI/ROS: CHIEF COMPLAINT: "My head is fucking killing me " HISTORY OF PRESENT ILLNESS: 22-year-old male arrives via private vehicle. Patient was discharged Hospital 2 days ago for diagnosis of aseptic meningitis, had lumbar puncture at that time as well. He was initially seen emergency department for complaints of headache. Returns to the ER stating that he has had intractable headache, intractable nausea and vomiting since discharge. Headache is positional. Notes decreased urine output. No nuchal rigidity. Positive photophobia. Positive nausea. No abdominal pain. No back or flank pain. No testicular pain.. PRIMARY CARE PROVIDER: REVIEW OF SYSTEMS: A ten point review of systems was performed and is negative with the exception of the items mentioned in the HPI PAST MEDICAL & SURGICAL HISTORY: Recent diagnosis of aseptic meningitis SOCIAL HISTORY:nonsmoker, student PHYSICAL EXAM (Prior to examination, patient consented to physical exam, hands were washed and my usual and customary physical exam procedures followed) 1) GENERAL: Well-developed, well-nourished, alert and oriented. Appears uncomfortable, laying supine with his hands over his face on the lights dimmed. . 2) HEAD: Normocephalic, atraumatic 3) HEENT: Pupils equal, round, reactive to light bilaterally. Sclera anicteric. Nasopharynx, oropharynx, clear, no lesions. Ears bilaterally with normal tympanic membranes. 4) NECK: Full range of motion, no meningeal signs. 5) LUNGS: Clear auscultation bilaterally, no wheezes, no rhonchi, no retractions. 6) HEART: Regular rate and rhythm, no murmur, no heave, no gallop. 7) ABDOMEN: No guarding, no rebound, no focal tenderness, negative McBurney's, negative Cohen's, negative Rovsing's, negative peritoneal sign, 8) MUSCULOSKELETAL: Moving all extremities, no focal areas of tenderness, no obvious trauma. No peripheral edema or discoloration. 9) BACK: No CVA tenderness, no midline vertebral tenderness, no fluctuance, no step-off, no obvious trauma, no visual or palpable abnormality. 10) SKIN: No rash, no petechiae. 11) Psychiatric: Patient is oriented X 3, there is no agitation. DIFFERENTIAL DIAGNOSIS: in no particular order including but not limited to aseptic meningitis, post lumbar puncture headache, acute migraine headache, intracranial hemorrhage - Personal History Current Tetanus Diphtheria and Acellular Pertussis (TDAP): Yes - Medical/Surgical History Hx Asthma: No Hx Chronic Respiratory Disease: No Hx Diabetes: No Hx Cardiac Disease: No Hx Renal Disease: No Hx Cirrhosis: No Hx Alcoholism: No Hx HIV/AIDS: No Hx Splenectomy or Spleen Trauma: No Other PMH: viral meningitis. lumbar pain, L rotator cuff repair - Social History Smoking Status: Former smoker Constitutional: Initial Vital Signs Temperature (C) 37.1 C 04/20/17 13:11 Heart Rate 83 04/20/17 13:11 Respiratory Rate 22 H 04/20/17 13:11 Blood Pressure 129/63 H 04/20/17 13:11 O2 Sat (%) 100 04/20/17 13:11 O2 Delivery Mode Room Air Allergies/Adverse Reactions: No Known Allergies Allergy (Verified 04/20/17 13:10) Home Medications: Medication Instructions Recorded Acetaminophen [Tylenol 325mg (*)] 325 mg PO Q6 PRN 04/20/17 Amphet Asp and D/Amphet [Adderall 10 mg PO DAILY PRN 04/20/17 10 MG (*)] Dextroamphetamine/Amphetamine 30 mg PO DAILY PRN 04/20/17 [Adderall Xr 30 mg Capsule] Herbals/Supplements -Info Only 1 ea PO DAILY 04/20/17 Ibuprofen [Motrin (*)] 200 mg PO DAILY PRN 04/20/17 Multivitamins [Multivitamin (*)] 1 each PO DAILY 04/20/17 Promethazine HCl [Phenergan 25mg 25 mg PO Q6 #5 tab 04/21/17 (*)] Medical Decision Making ED Course/Re-evaluation: 1:47 p.m.: Old medical records reviewed by myself. Care of patient under supervision of secondary supervising physician Dr Ramos with whom I discussed case . 2:50 p.m.: Re-evaluation, complaining of continued pain. We discussed blood patch however states that he is not interested in this as he does not want any further intervention to his lumbar spine. He is concerned about being discharged, states he does not feel safe being discharged secondary to pain, states that he has not have easy means of transportation back to the hospital if your discharged from the ER. I do not think that further diagnostic studies are indicated at this time. Plan will be admission to hospitalist. 3:00 p.m.: Consultation with hospitalist Dr. Jesu Meza who will admit patient - Data Points Laboratory Results: Laboratory Results 04/20/17 13:50 04/20/17 13:50 Medications Given: Discontinued Medications Acetaminophen (Tylenol) 1,000 mg PO Q8 QUAN Stop: 10/17/17 16:14 Last Admin: 04/21/17 06:34 Dose: 1,000 mg Hydromorphone HCl (Dilaudid) 1 mg IVP EDNOW ONE Stop: 04/20/17 13:55 Last Admin: 04/20/17 14:04 Dose: 1 mg Sodium Chloride (Ns) 1,000 mls @ 0 mls/hr IV ONCE ONE PRN Reason: Wide Open Stop: 04/20/17 13:55 Last Admin: 04/20/17 14:04 Dose: 1,000 mls Sodium Chloride (Ns) 1,000 mls @ 150 mls/hr IV CONT QUAN Stop: 04/21/17 22:54 Last Admin: 04/21/17 03:06 Dose: 1,000 mls Ibuprofen (Motrin) 400 mg PO Q4HRS QUAN Stop: 10/17/17 17:59 Last Admin: 04/21/17 09:27 Dose: Not Given Lorazepam (Ativan Injection) 1 mg IVP EDNOW ONE Stop: 04/20/17 13:55 Last Admin: 04/20/17 14:03 Dose: 1 mg Ondansetron HCl (Zofran) 4 mg IVP EDNOW ONE Stop: 04/20/17 13:55 Last Admin: 04/20/17 14:03 Dose: 4 mg Oxycodone HCl (Oxycodone Ir) 5 - 10 mg PO Q3HRS PRN PRN Reason: Pain, Severe Able to Take PO Stop: 04/30/17 16:13 Last Admin: 04/20/17 21:26 Dose: 10 mg Promethazine HCl (Phenergan) 12.5 mg IVP ONCE ONE Stop: 04/20/17 16:17 Last Admin: 04/20/17 18:19 Dose: Not Given Departure - Departure Disposition: [facility] Acute Clinical Impression: Aseptic meningitis Headache Qualifiers: Headache type: unspecified Headache chronicity pattern: acute headache Intractability: intractable Qualified Code(s): R51 - Headache Condition: Fair
[2017-04-20] MEDS ORDERED: NS 1,000 ML IV ONE (13:54)
[2017-04-20] MEDS ORDERED: ONDANSETRON 4 MG/2 ML VIAL IVP ONE (13:54)
[2017-04-20] MEDS ORDERED: LORazepam 2 MG/ML INJ IVP ONE (13:54)
[2017-04-20] MEDS ORDERED: HYDROmorphONE/DILAUDID 1 MG/ML INJ IVP ONE (13:54)
[2017-04-20 14:30] LABS: % IMMATURE GRANULYOCYTES 0.9 % (0.0-1.1); ABSOLUTE IMMATURE GRANULOCYTES 0.07 10^3/uL (0.00-0.10); ADD DIFF? NO; ADD MORPH? NO; ADD SCAN? NO; ATYPICAL LYMPHOCYTE FLAG 10 (0-99); FRAGMENT RBC FLAG 0 (0-99); HEMATOCRIT 44.1 % (40.0-51.0); HEMOGLOBIN 15.3 g/dL (13.7-17.5); LEFT SHIFT FLG 0 (0-99); LIPEMIA HEMOLYSIS FLAG 90 (0-99); MEAN CELL HEMOGLOBIN CONCENTR. 34.7 g/dL (32.4-36.7); MEAN CELL VOLUME 83.5 fL (81.5-99.8); MEAN PLATELET VOLUME 10.3 fL (8.7-11.7); PLATELET CLUMPS FLAG 10 (0-99); PLATELET COUNT 236 10^3/uL (150-400); RED BLOOD CELL COUNT 5.28 10^6/uL (4.40-6.38); RED CELL DISTRIBUTION WIDTH 12.9 % (11.5-15.2)
[2017-04-20 14:47] LABS: ANION GAP 15 mEq/L (8-16); CALCIUM 9.7 mg/dL (8.5-10.4); CARBON DIOXIDE 20 mEq/l (22-31); CHLORIDE 105 mEq/L (97-110); GLOMERULAR FILTRATION RATE > 60; GLUCOSE 100 mg/dL (70-100); POTASSIUM 3.9 mEq/L (3.5-5.2); SODIUM 140 mEq/L (134-144)
[2017-04-20] MEDS ORDERED: ONDANSETRON DISINTEGRATING 4 MG TAB PO PRN (16:14)
[2017-04-20] MEDS ORDERED: oxyCODONE IR 5 MG TAB PO PRN (16:14)
[2017-04-20] MEDS ORDERED: PROMETHAZINE HCL 25 MG/ML INJ IVP PRN (16:14)
[2017-04-20] MEDS ORDERED: ONDANSETRON 4 MG/2 ML VIAL IVP PRN (16:14)
[2017-04-20] MEDS ORDERED: PROMETHAZINE HCL 25 MG/ML INJ IVP ONE (16:16)
[2017-04-20] MEDS ORDERED: ADDERALL 10 MG TAB PO PRN (16:17)
[2017-04-20] MEDS ORDERED: Dextroamphetamine/Amphetamine [Adderall Xr 30 Mg Capsule] PO PRN (16:17)
--- NOTE | 2017-04-20 17:02 | GHP ---
[f rep st] HISTORY AND PHYSICAL DATE OF ADMISSION: 04/20/2017 HISTORY OF PRESENT ILLNESS: The patient is a 22-year-old gentleman who was recently admitted with as eptic meningitis. The final of those studies have returned with enterovirus and no bacterial growth. He was discharged on the with prescriptions for Percocet. He has had some nausea and headache. He was in a meeting today and felt he had nausea. [place] like he was going to vomit. He did leave a nd, in fact, did vomit. There was no blood. There was no coffee-ground emesis. He has not had diar jonas. In fact, he is constipated. He left the meeting and came to the hospital. He felt as if he w as "going to ." With headache. In the ER, he was offered blood patch, which he declined. His lumbar puncture was performed a full 5 days ago. He has not had ongoing fever chills. He has not been eating particularly well because of nausea. He has been taking Percocet, although it does not look like he was prescribed those for danielito n on discharge. REVIEW OF SYSTEMS: Complete 10-point review of systems conducted. Negative except as noted in the H PI. PAST MEDICAL HISTORY: Rotator cuff tear, ADHD. ALLERGIES: No known drug allergies. HOME MEDICATIONS: Adderall, multivitamin, ibuprofen, and Tylenol. SOCIAL HISTORY: Marijuana use. Occasional alcohol. [place] at . Originally from [place]. FAMILY HISTORY: Reviewed and unremarkable. PHYSICAL EXAMINATION: PRESENTING VITAL SIGNS: Temp 36.9, blood pressure 123/69, pulse 62, breathing 18 times a minute, 100% on room air. GENERAL: Uncomfortable. In no acute distress. Lying flat. HEENT: Sclerae anicteric. Oropharynx clear. Mucous membranes moist. NECK: Supple. No lymphadeno emily or JVD. LUNGS: Clear to auscultation bilaterally. HEART: Normal S1, S2. ABDOMEN: Soft, no ntender, nondistended. EXTREMITIES: Lower extremities without edema. Calves are nontender. SKIN: Without rash. NEUROLOGIC: Nonfocal. LABS: White count 8, hematocrit 44, platelets are 236,000, sodium 140, potassium 3.9, chloride 105, bicarb 20, BUN 9, creatinine 1.0, glucose is 100. Recent CSF shows enterovirus positivity. It was negative for MAURI. IMAGING: There is no imaging. COMMENT: I have discussed the case with Cat Olivier. I have reviewed and summarized previous hospit alization in the HPI. ASSESSMENT/PLAN: A 22-year-old gentleman with ongoing viral syndromes of nausea and headache. 1. Nausea. I will give him Phenergan now and give that on a p.r.n. basis. He denies an association between that and the Percocet. 2. Headache. I will schedule Tylenol and ibuprofen with p.r.n. with oxycodone. I have advised him of the potential for rebound headache. 3. Query post lumbar puncture headache. I do not believe so. It has been 5 full days between that and his headache. He is declining lumbar patch. If he still has headache in the morning, will do a trial of intravenous caffeine. 4. Poor p.o. intake. The patient is clinically euvolemic. I will provide him with 2 L of intravenou s fluid overnight. 5. Disposition: Observation status. Anticipated date of discharge 04/21/2017. /[id number]/MODL
[2017-04-20] MEDS: ACETAMINOPHEN 500 MG TAB PO SCH ×2 (18:20→23:04)
[2017-04-20] MEDS: IBUPROFEN 200 MG TAB PO SCH ×2 (18:26→23:10)
[2017-04-20] MEDS: NS 1,000 ML IV SCH (21:30)
[2017-04-21] MEDS: IBUPROFEN 200 MG TAB PO SCH ×3 (03:05→09:27)
[2017-04-21] MEDS: NS 1,000 ML IV SCH (03:06)
[2017-04-21 03:12] VITALS: RESP 14
[2017-04-21] MEDS: ACETAMINOPHEN 500 MG TAB PO SCH (06:34)
[2017-04-21 11:42] VITALS: BP 110/59; PULSE 39; TEMP 98; O2SAT 97
--- NOTE | 2017-04-21 12:58 | ASMTCMCOM ---
CM Note CM Note Notes: 04/21/2017 Case Management Note Met w/pt. Pt lives with room mates and feels unable to prepare meals. Provided information on [employer] from [employer]. Discussed having meals delivered. Pt reports close family friends in the area he can call for meals. Provided info for follow up at [facility]. Pt declined. Provided information on primary MD's through [facility]. Pt agreeable to choosing a MD for follow up. Pt arranging transport home with friends. Case Management d/c poc: Home independent with follow up as directed. Date Signed: 04/21/2017 12:58 PM Electronically Signed By:Nancy Mclaughlin RN
--- NOTE | 2017-04-21 13:38 | GDS ---
[f rep st] DISCHARGE SUMMARY DISCHARGE DIAGNOSES: 1. Recently diagnosed aseptic meningitis. 2. Headache with nausea, vomiting, resolved. 3. Headache, most likely due to above versus less likely spinal headache. 4. History of attention deficit hyperactivity disorder. 5. Resting bradycardia at baseline. HOSPITAL COURSE AND STAY BY PROBLEM: Nausea, vomiting, and headache: The patient was placed on obse rvation where his nausea and vomiting resolved. He does continue to have a headache, which does feel worse with standing but has been getting better. We did discuss the possibility of a spinal headach e; however, this seemed unlikely since his lumbar puncture was 5 days ago. The patient does seem to be getting better. PHYSICAL EXAM: VITAL SIGNS: On day of discharge, blood pressure 110/59, pulse is 39, respiratory ra te 14, O2 sat 97% on room air. Temperature afebrile. DISCHARGE MEDICATIONS: Please refer to discharge medication reconciliation in [facility] for details. Below is a preliminary list. New medications on hospital discharge: Phenergan 25 mg p.o. q.8 hours p.r.n. nausea. Prescription f or #5 was given. DISCHARGE INSTRUCTIONS: The patient will be discharged from the hospital where he should follow up w ith a primary care provider next week for routine hospital followup. He should seek medical attentio n if he continues to have a positional headache and be evaluated for blood patch. /[id number]/MODL
--- NOTE | 2017-04-21 16:38 | ASDISCHSUM ---
Discharge Information Plan Status:Home with No Needs Medically Cleared to Leave:04/20/2017 Discharge Date:04/21/2017 01:06 PM CM D/C Disposition:Home, Routine, Self-Care ADT D/C Disposition:Home, Routine, Self-Care Projected Discharge Date:04/21/2017 01:06 PM Transportation at D/C:Self Discharge Delay Reason: Follow-Up Date:04/21/2017 01:06 PM Discharge Slot: Final Diagnosis: Placement Information Patient Contact Information Contact Name:ROSALINALINHJOÃO Relationship:Father Address:[address] City:[place] Alternate Phone: State/Zip Code:[place] [address] Email: Financial Information Financial Class:HMO and PPO Plans Primary Plan Desc: OUT OF STATE PPO Primary Plan Number:[id number] Secondary Plan Desc: Secondary Plan Number: Assessment Information LACE LACE Length of stay for Answers: Less than 1 day current admission Acuity / Level of Care Answers: Was the patient admitted to hospital via the emergency department? Yes: Emergency dept visits in Answers: 2 last 6 months Score: 5 Date Signed: 04/20/2017 04:46 PM Electronically Signed By:Amy Barth RN [facility] Progress Note CM Note CM Note Notes: 04/21/2017 Case Management Note Met w/pt. Pt lives with room mates and feels unable to prepare meals. Provided information on [employer] from [employer]. Discussed having meals delivered. Pt reports close family friends in the area he can call for meals. Provided info for follow up at [facility]. Pt declined. Provided information on primary MD's through [facility]. Pt agreeable to choosing a MD for follow up. Pt arranging transport home with friends. Case Management d/c poc: Home independent with follow up as directed. Date Signed: 04/21/2017 12:58 PM Electronically Signed By:Nancy Mclaughlin RN Intervention Information
== END 2017-04-21 13:06 | disposition home or self-care (01) ==
LOC: F1N 18:01
PROVIDERS: ADMIT Internal Medicine; ATTEND Internal Medicine
DX: G03.0 Nonpyogenic meningitis (principal); R51 Headache; R11.2 Nausea with vomiting, unspecified; F90.9 Attention-deficit hyperactivity disorder, unspecified type; R00.1 Bradycardia, unspecified
CPT/HCPCS: 96361; 96374; 96375; 99285; G0378; J1170; J2060; J2405